=== PATIENT | female | born 1940 | race Two or more races ===

== ENCOUNTER 2021-09-06 20:22 | Inpatient (IN) | payer OTHER ==
[~2021-09-06] VITALS: Ht 162.6 cm; Wt 78.9 kg
--- NOTE | 2021-09-06 20:30 | NUR ---
FIDENCIO 7 FROM HOME FOR C/O AMS SINCE AM. RESP EVEN AND NON LABORED ON R/A; TOLERATING WELL. GANGRENE NOTED TO BILATERAL FINGERS. R FOOT AMPUTATED. CONNECTED PT TO POX AND MONITOR. SAFETY MEASURES IN PLACE.
--- NOTE | 2021-09-06 20:58 | NUR ---
COVID SWAB COLLECTED AND SENT TO LAB
[2021-09-06] MEDS ORDERED: IV NS 0.9% 1,000 ML BAG IV ONE ×2 (21:00→22:30)
--- NOTE | 2021-09-06 21:27 | NUR ---
FC 16FR INSERTED. URINE COLLECTED AND SENT TO LAB
--- NOTE | 2021-09-06 21:29 | NUR ---
FISH INSPECTOR AT PT'S BEDSIDE
--- NOTE | 2021-09-06 21:52 | NUR ---
PT TO CT VIA [facility]
[2021-09-06 22:11] LABS: CALCIUM, SERUM 9.4 mg/dL (8.5-10.1); CARBON DIOXIDE 15 mmol/L (21-32); CHLORIDE 100 mmol/L (98-107); CREATININE 6.6 mg/dL (0.6-1.3); GLUCOSE 120 mg/dL (74-106); POTASSIUM 6.1 mmol/L (3.5-5.1); SODIUM SERUM 132 mmol/L (136-145)
[2021-09-06 22:12] LABS: SERUM AMMONIA 28 umol/L (11-32)
[2021-09-06 22:15] LABS: UREA NITROGEN, BLOOD 80 mg/dL (7-18)
[2021-09-06 22:18] LABS: ALANINE AMINOTRANSFERASE 12 U/L (12-78); ALCOHOL, BLOOD < 3 mg/dL (0-0); ASPARTATE AMINOTRANSFERASE 3 U/L (15-37); TOTAL PROTEIN, SERUM 7.8 g/dL (6.4-8.2)
[2021-09-06 22:18] LABS: BASOPHILS % (AUTO) 0.4 % (0.0-2.0); EOSINOPHILS % (AUTO) 0.6 % (0.0-6.0); HEMATOCRIT 31 % (33-45); HEMOGLOBIN 9.9 g/dL (11.5-14.8); LYMPHOCYTES % (AUTO) 41.6 % (20.0-44.0); MEAN CORPUSCULAR HGB CONC 32 g/dl (31.0-36.0); MEAN CORPUSCULAR VOLUME 84 fL (82-100); MONOCYTES % (AUTO) 0.6 % (2.0-12.0); NEUTROPHILS # (AUTO) 4.1 K/uL (1.8-8.9); NEUTROPHILS % (AUTO) 56.8 % (43.0-81.0); PLATELET COUNT (AUTO) 245 K/uL (150-450); RED BLOOD CELL COUNT(AUTO) 3.73 MIL/uL (4.0-5.2); WHITE BLOOD COUNT (AUTO) 7.2 K/uL (4.3-11.0)
[2021-09-06 22:24] LABS: THYROID STIMULATING HORMONE 0.551 uIU/mL (0.358-3.74)
--- NOTE | 2021-09-06 22:24 | NUR ---
CALLED [facility] FOR MD CALLBACK
--- NOTE | 2021-09-06 22:27 | NUR ---
[facility]ERRE AND [facility] PIERRE ARE HAVING PEER TO PEER
[2021-09-06 22:29] LABS: ACETAMINOPHEN 29 ug/ml (10-30)
[2021-09-06] MEDS ORDERED: DEXTROSE 50%-WATER 50 ML DISP.SYRIN IV ONE (22:30)
[2021-09-06] MEDS ORDERED: CALCIUM CHLORIDE 1,000 MG/10 ML DISP.SYRIN IV ONE (22:30)
[2021-09-06] MEDS ORDERED: SODIUM POLYSTYRENE SULFONATE 15 G/60 ML BOTTLE PO ONE (22:30)
[2021-09-06] MEDS ORDERED: SODIUM BICARBONATE SYR 50 MEQ/50 ML DISP.SYRIN IV ONE (22:30)
[2021-09-06] MEDS ORDERED: INSULIN REGULAR, HUMAN 100 UNIT/ML 10 ML VIAL IV ONE (22:30)
[2021-09-06] MEDS ORDERED: SODIUM POLYSTYRENE SULFONATE 15 G/60 ML BOTTLE ONE (22:33)
[2021-09-06] MEDS ORDERED: DEXTROSE 50%-WATER 50 ML DISP.SYRIN ONE (22:34)
[2021-09-06] MEDS ORDERED: SODIUM BICARBONATE SYR 50 MEQ/50 ML DISP.SYRIN ONE (22:34)
[2021-09-06] MEDS ORDERED: INSULIN REGULAR, HUMAN 100 UNIT/ML 10 ML VIAL ONE (22:34)
[2021-09-06] MEDS ORDERED: CALCIUM CHLORIDE 1,000 MG/10 ML DISP.SYRIN ONE (22:34)
[2021-09-06 22:36] LABS: ALKALINE PHOSPHATASE < 10 U/L (46-116)
[2021-09-06 22:43] LABS: BILIRUBIN,URINE NEGATIVE (NEGATIVE); COLOR,URINE YELLOW (YELLOW); LEUKOCYTE ESTERASE ,URINE MODERATE (NEGATIVE); NITRITE, URINE NEGATIVE (NEGATIVE); PH,URINE 5.5 (5.0-8.0); PROTEIN,URINE 30 mg/dl (NEGATIVE); UGLUCOSE NEGATIVE (NEGATIVE); UROBILINOGEN,URINE 0.2 EU/dL (0.2)
--- NOTE | 2021-09-06 23:10 | NUR ---
REPORT GIVEN TO DIANA MUNGUIA RN FOR SONIYA
--- NOTE | 2021-09-06 23:29 | NUR ---
PT TRANSFERRED TO [facility] VIA ACLS PROTOCOL. VSS. ALL BELONGINGS AND MEDS WITH PT.
[2021-09-06 23:42] LABS: BACTERIA,URINE Many /HPF (None Seen); SQUAMOUS EPITHELIAL CELL,UR Moderate /HPF (None Seen); WBC,URINE TOO NUMEROUS TO COUN /HPF (0-3); YEAST,URINE Moderate /HPF (None Seen)
--- NOTE | 2021-09-06 23:50 | NUR ---
RN NOTES RECEIVED CARE OF PATIENT FROM ER, PATIENT A/O X3, ABLE TO MAKE NEEDS KNOWN. PATIENT EXPRESSES DISCOMFORT, REPOSITIONED PATIENT AND OFFLOAD/ELEVATED EXTREMITIES. PATIENT ON O2 THERAPY VIA NC AT 2 L/MIN, BREATHING EVEN AND UNLABORED, NO SOB NOTED. PATIENT ON TELE MONITOR SHOWING SINUS TACH WITH PVC, BBB, HR OF 102, NO DISTRESS ON PATIENT. NOTED WITH TOE AMPUTATION/ GANGRENE ON BILATERAL TOES, AND GANGRENE ON BILATERAL FINGERS, WOUND CARE CONSULT ORDERED. SAFETY MEASURES IMPLEMENTED PER HOSPITAL PROTOCOLS. WILL CONTINUE TO MONITOR PATIENT.
[2021-09-07] MEDS ORDERED: MORPHINE SULFATE INJ 2 MG/ML DISP.SYRIN IV PRN (01:00)
[2021-09-07] MEDS ORDERED: ZOLPIDEM TARTRATE 5 MG TABLET PO PRN (01:00)
[2021-09-07] MEDS ORDERED: CEFTRIAXONE 1 G in IV D5W 50 ML IV SCH (01:00)
[2021-09-07] MEDS ORDERED: ONDANSETRON HCL/PF 4 MG/2 ML VIAL IVP PRN (01:00)
[2021-09-07] MEDS ORDERED: Z GUARD REMEDY 4 OZ OINT TP PRN (01:00)
[2021-09-07] MEDS ORDERED: SILDENAFIL CITRATE 25 MG TABLET PO SCH (01:00)
[2021-09-07] MEDS ORDERED: SODIUM POLYSTYRENE SULFONATE 15 G/60 ML BOTTLE PO ONE (01:00)
[2021-09-07] MEDS ORDERED: ACETAMINOPHEN 325 MG TABLET PO PRN (01:00)
[2021-09-07] MEDS ORDERED: VANCOMYCIN 1 GM VIAL ONE (01:17)
[2021-09-07] MEDS ORDERED: CEFEPIME 1 GM VIAL ONE (01:23)
[2021-09-07] MEDS ORDERED: VANCOMYCIN 1.75 GM in IV D5W 500 ML IV ONE (01:30)
[2021-09-07] MEDS: CEFEPIME 1 GM in IV D5W 50 ML IV SCH (01:36)
[2021-09-07] MEDS: IV NS 0.9% 1,000 ML IV PRN (01:38)
[2021-09-07] MEDS ORDERED: SODIUM POLYSTYRENE SULFONATE 15 G/60 ML BOTTLE ONE (01:53)
--- NOTE | 2021-09-07 02:08 | NUR ---
RN NOTES [facility] 25 MG TABLE UNABLE TO GIVE DUE TO MEDICATION BEING CURRENTLY UNAVAILABLE. CHARGE NURSE AND UNIT MANAGER RN MADE AWARE.
[2021-09-07 04:00] VITALS: BP 127/72
[2021-09-07] MEDS ORDERED: PARO40TA4 PO (06:26)
[2021-09-07] MEDS ORDERED: ATOR20TA PO (06:26)
[2021-09-07] MEDS ORDERED: GABA300C PO (06:26)
[2021-09-07] MEDS ORDERED: VANCOMYCIN 500 MG in IV D5W 100 ML IV PRN (06:30)
[2021-09-07 06:50] LABS: ALANINE AMINOTRANSFERASE 11 U/L (12-78); ALBUMIN 2.1 g/dL (3.4-5.0); ALKALINE PHOSPHATASE 71 U/L (46-116); ASPARTATE AMINOTRANSFERASE 31 U/L (15-37); BILIRUBIN,TOTAL 0.9 mg/dL (0.2-1.0); CALCIUM, SERUM 9.9 mg/dL (8.5-10.1); CARBON DIOXIDE 18 mmol/L (21-32); CHLORIDE 106 mmol/L (98-107); CREATININE 6.6 mg/dL (0.6-1.3); GLUCOSE 152 mg/dL (74-106); MAGNESIUM 2.2 mg/dL (1.8-2.4); PHOSPHORUS 7.4 mg/dL (2.5-4.9); POTASSIUM 5.1 mmol/L (3.5-5.1); SODIUM SERUM 140 mmol/L (136-145); TOTAL PROTEIN, SERUM 7.4 g/dL (6.4-8.2); UREA NITROGEN, BLOOD 75 mg/dL (7-18)
--- NOTE | 2021-09-07 06:57 | NUR ---
RN CLOSING NOTES WILL ENDORSE CARE OF PATIENT TO AM NURSE. IS A/O X3, ABLE TO MAKE NEEDS KNOWN. O2 THERAPY VIA NC AT 2 L/MIN, NO RESPIRATORY COMPLICATIONS NOTED. NO SIGNIFICANT FINDINGS UPON ALL NURSING ASSESSMENTS. ALL DUE MEDS GIVEN AND NEEDS ATTENDED TO. SAFETY MEASURES KEPT IN PLACE. WILL ENDORSE TO AM NURSE FOR CONTINUITY OF CARE.
[2021-09-07 07:30] LABS: CHOLESTEROL 93 mg/dL (<200); HDL CHOLESTEROL 43 mg/dL (40-60); LDL 42 mg/dL (0-99); TRIGLYCERIDES 75 mg/dL (30-150)
[2021-09-07] MEDS ORDERED: POVI3780 TP (07:31)
[2021-09-07] MEDS ORDERED: OXYC-128 PO (07:31)
[2021-09-07] MEDS ORDERED: CALC1TAB30 PO (07:31)
[2021-09-07] MEDS ORDERED: ASPI-1420 PO (07:31)
[2021-09-07] MEDS ORDERED: VITA1TAB56 PO (07:31)
[2021-09-07] MEDS ORDERED: CHOL100043 PO (07:31)
[2021-09-07] MEDS ORDERED: PRED5TAB PO (07:31)
[2021-09-07] MEDS ORDERED: FOLI0.4T6 PO (07:31)
--- NOTE | 2021-09-07 07:33 | NUR ---
STUMP SHOOTER OPENING NOTES: RECEIVED PATIENT IN BED A/O X3 WITH PERIODS OF CONFUSION AND FORGETFULNESS, ABLE TO MAKE NEEDS KNOWN. PATIENT ON O2 THERAPY VIA NC AT 2 L/MIN, BREATHING EVEN AND UNLABORED, NO SOB NOTED. PATIENT ON TELE MONITOR SHOWING SINUS TACH WITH PVC, BBB, HR OF 102, NO DISTRESS ON PATIENT. NOTED WITH TOE AMPUTATION/ GANGRENE ON BILATERAL TOES, AND GANGRENE ON BILATERAL FINGERS, AWAITING WOUND CONSULT . SAFETY MEASURES IN PLACE PER HOSPITAL PROTOCOLS. BED IN LOW AND LOCKED POSITION, LEFT FOREARM HL PATENT WITH IV FLUID RUNNING. WILL CONTINUE TO MONITOR PATIENT.
[2021-09-07] MEDS: PANTOPRAZOLE 40 MG TABLET.DR PO SCH (07:44)
[2021-09-07 08:00] VITALS: BP 137/77
--- NOTE | 2021-09-07 08:15 | NUR ---
RN NOTES: CALLED PHARMACY [facility] NOT AVAILABLE THEY SAID THEY WILL SEND IT
[2021-09-07 08:21] LABS: BASOPHILS % (AUTO) 0.4 % (0.0-2.0); EOSINOPHILS % (AUTO) 0.9 % (0.0-6.0); HEMATOCRIT 27 % (33-45); HEMOGLOBIN 8.7 g/dL (11.5-14.8); LYMPHOCYTES # (AUTO) 1.3 K/uL (0.8-4.8); LYMPHOCYTES % (AUTO) 48.3 % (20.0-44.0); MEAN CORPUSCULAR HGB CONC 32 g/dl (31.0-36.0); MEAN CORPUSCULAR VOLUME 83 fL (82-100); MONOCYTES % (AUTO) 0.8 % (2.0-12.0); NEUTROPHILS # (AUTO) 1.3 K/uL (1.8-8.9); NEUTROPHILS % (AUTO) 49.6 % (43.0-81.0); PLATELET COUNT (AUTO) 188 K/uL (150-450); RED BLOOD CELL COUNT(AUTO) 3.31 MIL/uL (4.0-5.2); WHITE BLOOD COUNT (AUTO) 2.7 K/uL (4.3-11.0)
[2021-09-07] MEDS: HEPARIN SODIUM, PORCINE 5000 UNITS/1 ML VIAL SQ SCH ×2 (09:20→22:40)
[2021-09-07] MEDS: ASPIRIN EC 81 MG TABLET.DR PO SCH (09:20)
--- NOTE | 2021-09-07 10:14 | NUR ---
RN NOTES: CALLED PHARMACY AND REQUEST [facility] WHO SAID NOT AVAILABLE,THEY CALLED JR. JAVA DEVELOPER DANN AWAITING FOR RESPONSE
--- NOTE | 2021-09-07 11:59 | NUR ---
WOUND CARE CONSULT: PT PRESENTS WITH STAGE 3 ULCER TO SACRUM AND SEVERE RASH TO BUTTOCKS, GROIN FOLDS AND PERINEUM, DRY NECROTIC TISSUE NOTED TO LOWER EXTREMITIES AND TO FINGERS, PRESENT ON ADMISSION. DPM CONSULT CALLED TO DR ALMENDAREZ AND SURGICAL CONSULT TO DR FREDY LACKEY. DISCUSSED SKIN PROTECTION AND WOUND CARE WITH NURSING STAFF. IN AGREEMENT WITH PLAN OF CARE. PT IS INCONTINENT OF STOOL. Addendum: 09/07/21 at 1200 by JAYESH PALUMBO WNDNU Amended: Links added.
[2021-09-07 12:00] VITALS: BP 96/36
[2021-09-07] MEDS ORDERED: VANCOMYCIN 0.75 GM in IV D5W 250 ML IV SCH ×4 (13:00)
--- NOTE | 2021-09-07 13:09 | NUR ---
RN NOTES: NOTED PT WITH POOR PO INTAKE,COUGHING WITH WATER,DANN ROMERO AWARE WITH ORDER OF ST EVAL, ALSO HEPLOCK NOTED INFILTRATED, TRIED TO INSERT HEPLOCK, ALSO CHARGE NURSE TRIED UNABLE TO OBTAIN IV ACCESS,HOTEL OR MOTEL CLEANING SUPERVISOR WITH ORDER OF MIDLINE INSERTION
[2021-09-07] MEDS: SILDENAFIL CITRATE 20 MG TABLET PO SCH ×2 (13:11→17:41)
[2021-09-07] MEDS ORDERED: DEXTROSE 50%-WATER 50 ML DISP.SYRIN IV PRN (14:30)
--- NOTE | 2021-09-07 14:30 | NUR ---
SS Note: SS received consult for stage 3 ulcer, severe rash, gangrene from home. Pt. is alert and oriented x1, SW attempted to interview pt. but she was confused. Pt. was able to confirm name but was not able to confirm , address, or situation. Pt. appeared unkempt and has many wounds from fingers to her legs. Per would consult, pt. presents with stage 3 ulcer to sacrum and severe rash to buttocks, dry necrotic tissue noted to lower extremities and to fingers. Per CM note, information was obtained from pt.s [facility] [[phone]]. stated that pt. has caregiver that comes couple times a week but is no longer enough. is open to SNF placement. SW made an APS report for physical/medical self-neglect. APS Intake #[id number]
[2021-09-07] MEDS ORDERED: FLUCONAZOLE (100 MG) 100 MG TABLET PO ONE (15:00)
[2021-09-07 16:00] VITALS: BP 107/86
[2021-09-07] MEDS: FLUCONAZOLE (100 MG) 100 MG TABLET PO SCH (16:09)
[2021-09-07] MEDS ORDERED: NEPRO VAN 237 ML CAN PO PRN (17:00)
[2021-09-07] MEDS: CLOTRIMAZOLE/BETAMETASONE DIPROPIONATE 15 GM TUBE TP SCH (17:41)
[2021-09-07] MEDS: BLOOD SUGAR DIAGNOSTIC 1 EACH STRIP IN SCH ×2 (17:58→22:42)
--- NOTE | 2021-09-07 18:40 | NUR ---
RN NOTES: NOTED PT WITH DIARRHEA WATERY LARGE AMOUNT SPOKE TO DANN ROMERO CLAIM PROCESSOR WITH ORDER TO INSERT RECTAL TUBE
--- NOTE | 2021-09-07 19:34 | NUR ---
CORRESPONDENCE SPECIALIST RICHAR NOTES: PT IS A/O X3, ABLE TO MAKE NEEDS KNOWN. O2 THERAPY VIA NC AT 2 L/MIN, NO RESPIRATORY COMPLICATIONS NOTED. NO SIGNIFICANT FINDINGS UPON ALL NURSING ASSESSMENTS. ALL DUE MEDS GIVEN AND NEEDS ATTENDED TO. SAFETY MEASURES KEPT IN PLACE. WILL ENDORSE TO AM NURSE FOR CONTINUITY OF CARE.
[2021-09-07] MEDS: INSULIN REGULAR, HUMAN 100 UNIT/ML 3 ML VIAL SQ PRN (22:42)
--- NOTE | 2021-09-07 23:15 | NUR ---
HEAVY THREADER RN NOTES PT COMPLAINING OF PAIN PRN TYLENOL GIVEN FOR PAIN TOLERATED WELL.
[2021-09-08] VITALS: BP 126/90
--- NOTE | 2021-09-08 02:00 | NUR ---
SEAMLESS TUBE MILL OPERATOR NOTES PT NEW IV ACCESS IS INDU MIDLINE INSERTED BY DR SPANN SUCCESSFULLY FLUSHING WELL. PT TOLERATED PROCEDURE WELL.WILL CONTINUE TO MONITOR.
[2021-09-08] MEDS: CEFEPIME 1 GM in IV D5W 50 ML IV SCH (02:15)
[2021-09-08 04:00] VITALS: BP 121/99
--- NOTE | 2021-09-08 05:37 | NUR ---
PRN TELE NOTES PT REPORTING SEVERE PAIN MOANING IN PAIN 8/10 PIN PRN MORPHINE GIVEN AND TOLERATED WELL.
--- NOTE | 2021-09-08 06:28 | NUR ---
ACCIDENT REPORT CLERK CLOSING NOTES: PT IS A/O X3, ABLE TO MAKE NEEDS KNOWN. O2 THERAPY VIA NC AT 2 L/MIN, NO RESPIRATORY COMPLICATIONS NOTED. NO SIGNIFICANT FINDINGS UPON ALL NURSING ASSESSMENTS. ALL DUE MEDS GIVEN AND NEEDS ATTENDED TO. SAFETY MEASURES KEPT IN PLACE. WILL ENDORSE TO AM NURSE FOR CONTINUITY OF CARE.
[2021-09-08 06:48] LABS: CALCIUM, SERUM 9.4 mg/dL (8.5-10.1); CARBON DIOXIDE 16 mmol/L (21-32); CHLORIDE 106 mmol/L (98-107); GLUCOSE 105 mg/dL (74-106); POTASSIUM 5.4 mmol/L (3.5-5.1); SODIUM SERUM 139 mmol/L (136-145)
[2021-09-08 07:11] LABS: CREATININE 7.8 mg/dL (0.6-1.3); PHOSPHORUS 8.9 mg/dL (2.5-4.9); UREA NITROGEN, BLOOD 89 mg/dL (7-18)
--- NOTE | 2021-09-08 07:41 | NUR ---
MAIL CLERK BILLS OPENING NOTES: PT RECEIVED ASLEEP. O2 THERAPY VIA NC AT 2 L/MIN, NO RESPIRATORY DISTRESS NOTED. O2 SAT AT 98%. PT HAS INDU MIDLINE INFUSING 0.9NS AT 75 ML/HR. FLEXISEAL AND FC IN PLACE. ALL SAFETY MEASURES KEPT IN PLACE, CALL LIGHT WITHIN REACH. WILL CONTIMUE PLAN OF CARE.
[2021-09-08] MEDS: BLOOD SUGAR DIAGNOSTIC 1 EACH STRIP IN SCH ×2 (07:56→12:11)
[2021-09-08] MEDS: PANTOPRAZOLE 40 MG TABLET.DR PO SCH (07:57)
[2021-09-08 08:00] VITALS: BP 118/98
[2021-09-08] MEDS: ASPIRIN EC 81 MG TABLET.DR PO SCH (08:37)
[2021-09-08] MEDS: SILDENAFIL CITRATE 20 MG TABLET PO SCH ×2 (08:38→12:47)
[2021-09-08] MEDS: FLUCONAZOLE (100 MG) 100 MG TABLET PO SCH (08:38)
[2021-09-08] MEDS: HEPARIN SODIUM, PORCINE 5000 UNITS/1 ML VIAL SQ SCH (08:40)
[2021-09-08] MEDS: CLOTRIMAZOLE/BETAMETASONE DIPROPIONATE 15 GM TUBE TP SCH (08:41)
[2021-09-08 12:00] VITALS: BP 110/75
[2021-09-08] MEDS: INSULIN REGULAR, HUMAN 100 UNIT/ML 3 ML VIAL SQ PRN (12:11)
[2021-09-08] MEDS: IV NS 0.9% 1,000 ML IV PRN (13:03)
--- NOTE | 2021-09-08 14:00 | NUR ---
INDU GARCIA PATENT AND INFUSING WELL. Addendum: 09/08/21 at 1432 by ESTHER ESTRELLA RN Amended: Links added.
[2021-09-08 16:00] VITALS: BP 110/75
--- NOTE | 2021-09-08 17:30 | NUR ---
REVIEWED REPORTED PT INFORMATION AND DISCHARGE INSTRUCTION WITH JAYY FROM [facility]. PT DISCHARGED VIA [facility] WITH INSTRUCTIONS, PRESCRIPTION AND BELONGINGS. MID LINE AND FC KEPT IN PLACE REQUESTED BY [facility] RN. TELEMETRY PREVIOUSLY DISCONTIUNED. PT DISCHARGED TO [facility]. VS: T 97.8, HR 95, RR 20, O2SAT 99, BP 100/70.
[2021-09-08] MEDS ORDERED: VANCOMYCIN 1.25 GM in IV D5W 250 ML IV ONE (19:00)
== END 2021-09-08 19:07 | disposition short-term general hospital (02) | DRG 682 ==
LOC: ER 20:24 → TELE1 23:02
PROVIDERS: ADMIT Nurse Practitioner Acute Care
DX: N17.9 Acute kidney failure, unspecified (principal); L89.153 Pressure ulcer of sacral region, stage 3; N39.0 Urinary tract infection, site not specified; E11.52 Type 2 diabetes mellitus with diabetic peripheral angiopathy with gangrene; K51.90 Ulcerative colitis, unspecified, without complications; E24.2 Drug-induced Cushing's syndrome; D68.69 Other thrombophilia; G93.40 Encephalopathy, unspecified; I73.01 Raynaud's syndrome with gangrene; N18.5 Chronic kidney disease, stage 5; I48.91 Unspecified atrial fibrillation; Z86.73 Personal history of transient ischemic attack (TIA), and cerebral infarction without residual deficits; E78.5 Hyperlipidemia, unspecified; E11.42 Type 2 diabetes mellitus with diabetic polyneuropathy; D63.8 Anemia in other chronic diseases classified elsewhere; E87.5 Hyperkalemia; N18.9 Chronic kidney disease, unspecified; Z74.01 Bed confinement status; Z90.49 Acquired absence of other specified parts of digestive tract; Z74.09 Other reduced mobility; F32.9 Major depressive disorder, single episode, unspecified; Z66 Do not resuscitate; Z89.422 Acquired absence of other left toe(s); Z89.431 Acquired absence of right foot; F32.A Depression, unspecified; I12.9 Hypertensive chronic kidney disease with stage 1 through stage 4 chronic kidney disease, or unspecified chronic kidney disease; Z20.822 Contact with and (suspected) exposure to COVID-19; J44.9 Chronic obstructive pulmonary disease, unspecified; T38.0X5A Adverse effect of glucocorticoids and synthetic analogues, initial encounter; L30.8 Other specified dermatitis; B95.2 Enterococcus as the cause of diseases classified elsewhere; E11.22 Type 2 diabetes mellitus with diabetic chronic kidney disease; Z85.3 Personal history of malignant neoplasm of breast
CPT/HCPCS: 36415; 70450-TC; 71045-TC; 76770-TC; 80048-TC; 80053-TC; 80061-TC; 80076-TC; 80202-TC; 81001; 82140-TC; 82962-TC; 83735-TC; 84100-TC; 84443-TC; 84484-TC; 85025-TC; 85730-TC; 87081-TC; 87086-TC; 87186-TC; 92526; 92611-TC; 93307-TC; 94799-TC; C9803; G0378; G0480; J0692; J1644; J1815; J2270; J3370; J3490; J7030; J7060